=== PATIENT | female | born 1995 | race American Indian/Alaskan Native ===

== ENCOUNTER 2018-07-04 13:13 | Emergency (ER) | payer BC ==
[2018-07-04] MEDS ORDERED: NACL 0.9% 1000 ML 1,000 ML IV ONE (14:17)
[2018-07-04] MEDS ORDERED: TORADOL IV ONE (14:17)
[2018-07-04] MEDS ORDERED: REGLAN IV ONE (14:17)
[2018-07-04] MEDS ORDERED: BENADRYL IV ONE (14:17)
[2018-07-04] MEDS ORDERED: CATAPRES PO ONE ×2 (14:19→14:43)
--- NOTE | 2018-07-04 14:23 | Emergency Department Report ---
ED Headache HPI - General Chief Complaint: Headache Stated Complaint: HEADACHE Time Seen by Provider: 07/04/18 13:53 - History of Present Illness Initial Comments: This is a 22-year-old female nontoxic, well nourished in appearance, no acute signs of distress presents to the ED with c/o of intermittent headache x3 days. Patient describes headache as diffuse with level of 3 out of 10. Patient denies thunderclap headache. Patient denies any radiation of pain. Patient denies any head trauma. Patient denies any visual changes. Patient denies worse headache. Patient stated that darkness makes headache better and bright lights make the headache worse. Patient also stated that she has been taking OTC extra strength Tylenol which subsided her headaches. Patient denies any numbness, tingling, fever, chills, nausea, vomiting, chest pain, shortness of breath, stiff neck. Patient denies any radiation of pain. Patient denies any allergies. Patient stated PMH includes HTN. Timing/Duration: episodic Quality: mild, achy Recent Head Trauma: no recent headache/trauma Associated Symptoms: denies symptoms. denies: confusion, fatigue, facial pain, fever/chills, flushing, loss of consciousness, nausea/vomiting, nasal congestion, nasal drainage, numbness in legs/feet, rash, seizures, sinus infection, stiff neck, vision changes, weakness Allergies/Adverse Reactions: Allergies No Known Allergies Allergy (Unverified 07/04/18 13:27) Home Medications: Ambulatory Orders Butalb/Acetamin/Caff 50-325-40 [Fioricet] 1 tab PO Q6HR PRN #12 tab 07/04/18 amLODIPine [Norvasc] 5 mg PO DAILY #30 tab 07/04/18 ED Review of Systems ROS: Stated complaint: HEADACHE Other details as noted in HPI Constitutional: denies: chills, fever Eyes: denies: eye pain, eye discharge, vision change ENT: denies: ear pain, throat pain Respiratory: denies: cough, shortness of breath, wheezing Cardiovascular: denies: chest pain, palpitations Endocrine: no symptoms reported Gastrointestinal: denies: abdominal pain, nausea, diarrhea Genitourinary: denies: urgency, dysuria, discharge Musculoskeletal: denies: back pain, joint swelling, arthralgia Skin: denies: rash, lesions Neurological: headache. denies: weakness, paresthesias Psychiatric: denies: anxiety, depression Hematological/Lymphatic: denies: easy bleeding, easy bruising ED Past Medical Hx - Past Medical History Hx Hypertension: Yes (does not take med) - Surgical History Past Surgical History?: No - Social History Smoking Status: Never Smoker Substance Use Type: None - Medications Home Medications: Home Medications Medication Instructions Recorded Confirmed Last Taken Type Butalb/Acetamin/Caff 50-325-40 1 tab PO Q6HR PRN #12 tab 07/04/18 Unknown Rx [Fioricet] amLODIPine [Norvasc] 5 mg PO DAILY #30 tab 07/04/18 Unknown Rx ED Physical Exam - General Limitations: No Limitations General appearance: alert, in no apparent distress - Head Head exam: Present: atraumatic, normocephalic - Eye Eye exam: Present: normal appearance, PERRL, EOMI - Neck Neck exam: Present: normal inspection, full ROM. Absent: tenderness, meningismus, lymphadenopathy - Extremities Exam Extremities exam: Present: normal inspection, full ROM - Back Exam Back exam: Present: normal inspection, full ROM - Neurological Exam Neurological exam: Present: alert, oriented X3, normal gait - Expanded Neurological Exam Expanded Patient oriented to: Present: person, place, time Cranial nerves: EOM's Intact: Normal, Facial Sensation: Normal Cerebellar function: Finger to Nose: Normal Upper motor neuron: Pronator Drift: Normal, Sensory Extinction: Normal Sensory exam: Upper Extremity Light Touch: Normal, Upper Extremity Pin Prick: Normal, Upper Extremity Temperature: Normal, UE 2 Point Discrimination: Normal, Lower Extremity Light Touch: Normal, Lower Extremity Pin Prick: Normal, Lower Extremity Temperature: Normal, LE 2 Point Discrimination: Normal Motor strength exam: RUE: 5, LUE: 5, RLE: 5, LLE: 5 Best Eye Response (Scarlet): (4) open spontaneously Best Motor Response (Bowman): (6) obeys commands Best Verbal Response (Bowman): (5) oriented Bowman Total: 15 - Psychiatric Psychiatric exam: Present: normal affect, normal mood - Skin Skin exam: Present: warm, dry, intact, normal color. Absent: rash ED Course Vital Signs 07/04/18 13:25 Temperature 98.6 F Pulse Rate 92 H Respiratory 18 Rate Blood Pressure 167/108 O2 Sat by Pulse 100 Oximetry - Reevaluation(s) Reevaluation #1: 07/04/18 14:30 Patient is speaking in full sentences with no signs of distress noted. ED Medical Decision Making - Medical Decision Making This is a 22-year-old female that presents with headache and HTN. Patient is stable and was examined by me. Patient is neurologically stable. There is no stiff neck or neck pain. Vital signs are stable. Patient is afebrile. Patient received Benadryl, Reglan, Toradol, and 1 L of normal saline which the patient stated that headache has subsided and resolved. Patient also recevied Catapres in the ED. patient was instructed to keep a daily diary of blood pressure and presented to primary care doctor. Patient was instructed not to operate any machinery after discharged due to drowsiness of Benadryl. Patient stated that a family member will drive patient home. Patient is discharged with Fioricet and Norvasc. Patient was referred to Follow-up with a primary care/neurologist doctor in 3-5 days or if symptoms worsen and continue return to emergency room as soon as possible. At time of discharge, the patient does not seem toxic or ill in appearance. No acute signs of distress noted. Patient agrees to discharge treatment plan of care. No further questions noted by the patient. Critical care attestation.: If time is entered above; I have spent that time in minutes in the direct care of this critically ill patient, excluding procedure time. ED Disposition Clinical Impression: Headache Qualifiers: Headache type: unspecified Headache chronicity pattern: acute headache Intractability: not intractable Qualified Code(s): R51 - Headache Hypertension Qualifiers: Hypertension type: unspecified Qualified Code(s): I10 - Essential (primary) hypertension Disposition: DC-01 TO HOME OR SELFCARE Is pt being admited?: No Does the pt Need Aspirin: No Condition: Stable Instructions: Hypertension (ED), Low Sodium Diet (ED) Additional Instructions: Follow-up with a primary care doctor in 3-5 days or if symptoms worsen and continue return to emergency room as soon as possible. Keep a daily diary of your blood pressure and present it to primary care doctor. Prescriptions: amLODIPine [Norvasc] 5 mg PO DAILY #30 tab Butalb/Acetamin/Caff 50-325-40 [Fioricet] 1 tab PO Q6HR PRN #12 tab PRN Reason: Headache Referrals: PRIMARY CARE, [Primary Care Provider] - 3-5 Days KALI BLACKWOOD MD [Staff Physician] - 3-5 Days [facility] [Outside] - 3-5 Days [facility] [Outside] - 3-5 Days Forms: Work/School Release Form(ED)
[2018-07-04] MEDS ORDERED: CATAPRES ONE (14:34)
[2018-07-04 16:01] VITALS: BP 139/87
== END 2018-07-04 16:15 | disposition home or self-care (01) ==
LOC: ED 13:13
DX: R51 Headache (principal); I10 Essential (primary) hypertension
CPT/HCPCS: 96361; 96374; 96375; 99283; J1200; J1885; J2765; J7030

== ENCOUNTER 2018-09-29 23:19 | Emergency (ER) | payer SELFPAY ==
[2018-09-29] MEDS ORDERED: TYLENOL PO ONE (23:57)
[2018-09-30] MEDS ORDERED: TYLENOL ONE
[2018-09-30] MEDS ORDERED: TRIMOX PO ONE (00:07)
[2018-09-30] MEDS ORDERED: DECADRON IM ONE (00:07)
--- NOTE | 2018-09-30 00:12 | Emergency Department Report ---
Minor Respiratory - HPI Chief Complaint: Sore Throat Stated Complaint: SORE THROAT Time Seen by Provider: 09/30/18 00:07 Duration: 3 Days Pain Location: Throat Severity: mild Minor Respiratory: Yes Sore Throat, Yes Able to Tolerate Fluids, Yes Fever, No Rhinorrhea, No Ear Pain, No Cough, No Sick Contacts, No Hemoptysis, No Chest Pain, No Shortness of Breath Other History: SORE THROAT FOR 3 DAYS. FEVER. [employer] IN[employer]. [employer]. [employer]ING [employer]. PMH. HTN. RX. NONE ED Review of Systems ROS: Stated complaint: SORE THROAT Other details as noted in HPI Comment: All other systems reviewed and negative Constitutional: see HPI, fever. denies: chills Eyes: denies: eye pain ENT: as per HPI, throat pain Respiratory: denies: orthopnea Cardiovascular: denies: palpitations Endocrine: denies: flushing Gastrointestinal: denies: nausea Genitourinary: denies: dysuria Musculoskeletal: denies: back pain Skin: denies: lesions Neurological: denies: headache Psychiatric: denies: anxiety Hematological/Lymphatic: denies: easy bleeding ED Past Medical Hx - Past Medical History Previous Medical History?: Yes Hx Hypertension: Yes Additional medical history: Obesity - Surgical History Past Surgical History?: No - Family History Family history: no significant - Social History Smoking Status: Never Smoker Substance Use Type: None - Medications Home Medications: Home Medications Medication Instructions Recorded Confirmed Last Taken Type Amoxicillin 500 mg PO BID #20 capsule 09/30/18 Unknown Rx Minor Respiratory Exam - Exam General: Vital signs noted. No distress. Alert and acting appropriately. HEENT: Yes Pharyngeal Erythema, Yes Pharyngeal Exudates, Yes Moist Mucous Membranes, No Rhinorrhea, No Conjuctival Injection, No Frontal Tenderness, No Maxillary Tenderness Ear: Neither TM Bulge, Neither TM Erythema, Neither EAC Pain, Neither EAC Discharge Neck: No Adenopathy, No Supple Lungs: Yes Good Air Exchange, No Wheezes, No Ronchi, No Stridor, No Cough, No Labored Respirations, No Retractions, No Use of Accessory Muscles, No Other Abnormal Lung Sounds Heart: Yes Regular, No Murmur Abdomen: Yes Normal Bowel Sounds, No Tenderness, No Peritoneal Signs Skin: No Rash, No Edema Neurologic: Alert and oriented, no deficits. Musculoskeletal: Unremarkable. ED Course Vital Signs 09/29/18 23:33 Temperature 100.1 F H Pulse Rate 111 H Respiratory 18 Rate Blood Pressure 171/105 O2 Sat by Pulse 98 Oximetry ED Medical Decision Making - Medical Decision Making Vital Signs 09/29/18 23:33 Temperature 100.1 F H Pulse Rate 111 H Respiratory 18 Rate Blood Pressure 171/105 O2 Sat by Pulse 98 Oximetry MEDICATED IN ER HAS NOT TAKEN HER BP MEDS BECAUSE HER THROAT HURTS CLONIDINE PO IN ER DC HOME WITH DC PLAN OF CARE AND FOLLOW UP WITH PCP Critical care attestation.: If time is entered above; I have spent that time in minutes in the direct care of this critically ill patient, excluding procedure time. ED Disposition Clinical Impression: Exudative pharyngitis, HTN (hypertension) Disposition: DC-01 TO HOME OR SELFCARE Is pt being admited?: No Does the pt Need Aspirin: No Condition: Stable Instructions: Pharyngitis (ED), Hypertension (ED) Additional Instructions: HYDRATE WELL WITH WATER FOLLOW UP PCP IF PERSISTS ACTIVITY TOLERATED DIET TOLERATED MED ORDERED MOTRIN OR TYLENOL FOR PAIN OR FEVER Prescriptions: Amoxicillin 500 mg PO BID #20 capsule Referrals: [facility] [Outside] - 3-5 Days Time of Disposition: 00:12
[2018-09-30] MEDS ORDERED: CATAPRES PO ONE (00:13)
[2018-09-30 02:25] VITALS: BP 142/103
== END 2018-09-30 02:26 | disposition home or self-care (01) ==
LOC: ED 23:19
DX: J02.9 Acute pharyngitis, unspecified (principal); I10 Essential (primary) hypertension; E66.9 Obesity, unspecified
CPT/HCPCS: 87430; 96372; 99283; J1100

== ENCOUNTER 2019-02-09 22:58 | Emergency (ER) | payer SELFPAY ==
[2019-02-10] MEDS ORDERED: XYLOCAINE 1% MPF 5 mL INFILTRATI ONE (00:52)
[2019-02-10] MEDS ORDERED: NORCO 5/325 PO ONE (00:53)
[2019-02-10] MEDS ORDERED: BOOSTRIX IM ONE (00:53)
--- NOTE | 2019-02-10 01:40 | Emergency Department Report ---
- General Chief Complaint: Wound/Laceration Stated Complaint: GASH ON LEFT ARM, HIT BY METAL DOOR Time Seen by Provider: 02/10/19 00:51 Source: patient Mode of arrival: Ambulatory Limitations: No Limitations - History of Present Illness Initial Comments: Pt is a 23-year-old female who presents for left forearm laceration versus metabolic at work last tetanus is unknown and is 2 cm bleeding controlled by direct pressure applied at work there is no numbness tingling no no tendon or muscle damage range of motion remains intact Onset/Timin -: hour(s) Extremity Location: Left: Forearm Place: work Patient Tetanus UTD: No Context: accidental Associated Symptoms: pain - Related Data Previous Rx's Medication Instructions Recorded Last Taken Type Amoxicillin 500 mg PO BID #20 capsule 09/30/18 Unknown Rx cephALEXin [Keflex] 500 mg PO Q8HR 10 Days #30 cap 02/10/19 Unknown Rx traMADol [Ultram] 50 mg PO Q6HR PRN #12 tablet 02/10/19 Unknown Rx Allergies Allergy/AdvReac Type Severity Reaction Status Date / Time No Known Allergies Allergy Verified 07/04/18 14:32 ED Review of Systems ROS: Stated complaint: GASH ON LEFT ARM, HIT BY METAL DOOR Other details as noted in HPI Constitutional: denies: chills, fever Eyes: denies: eye pain, eye discharge, vision change ENT: denies: ear pain, throat pain Respiratory: denies: cough, shortness of breath, wheezing Cardiovascular: denies: chest pain, palpitations Endocrine: no symptoms reported Gastrointestinal: denies: abdominal pain, nausea, vomiting, diarrhea Genitourinary: denies: urgency, dysuria, discharge Musculoskeletal: denies: back pain, joint swelling, arthralgia Skin: other (laceration 2 cm left foream ). denies: rash, lesions Neurological: denies: headache, weakness, paresthesias Psychiatric: denies: anxiety, depression Hematological/Lymphatic: denies: easy bleeding, easy bruising ED Past Medical Hx - Past Medical History Previous Medical History?: Yes Hx Hypertension: Yes Additional medical history: Obesity - Surgical History Past Surgical History?: No - Social History Smoking Status: Never Smoker Substance Use Type: None - Medications Home Medications: Home Medications Medication Instructions Recorded Confirmed Last Taken Type Amoxicillin 500 mg PO BID #20 capsule 09/30/18 Unknown Rx cephALEXin [Keflex] 500 mg PO Q8HR 10 Days #30 cap 02/10/19 Unknown Rx traMADol [Ultram] 50 mg PO Q6HR PRN #12 tablet 02/10/19 Unknown Rx ED Physical Exam - General Limitations: No Limitations General appearance: alert, in no apparent distress - Head Head exam: Present: atraumatic, normocephalic - Eye Eye exam: Present: normal appearance, PERRL, EOMI Pupils: Present: normal accommodation - ENT ENT exam: Present: mucous membranes moist - Neck Neck exam: Present: normal inspection, tenderness, full ROM, lymphadenopathy - Respiratory Respiratory exam: Present: normal lung sounds bilaterally. Absent: wheezes, stridor, chest wall tenderness - Cardiovascular Cardiovascular Exam: Present: regular rate, normal rhythm, normal heart sounds. Absent: systolic murmur, diastolic murmur, rubs, gallop - GI/Abdominal GI/Abdominal exam: Present: soft, normal bowel sounds. Absent: distended, tenderness, bruit, hernia - Rectal Rectal exam: Present: deferred - Extremities Exam Extremities exam: Present: normal inspection, full ROM, tenderness (left forearm laceration), normal capillary refill. Absent: pedal edema, joint swelling - Expanded Upper Extremity Exam Left General: Present: laceration Forearm Wrist exam: Present: full ROM, tenderness, laceration. Absent: swelling, abrasion, ecchymosis, deformity, crepidus, dislocation, erythema, tenderness over anatomical snuff box, pain with axial thumb loading Neuro motor exam: Present: wrist extension intact, thumb opposition intact, thumb IP flexion intact, thumb adduction intact, fingers 2-5 abduction intact Neurosensory exam: Present: 2-point discrimination, radial nerve intact, ulnar nerve intact, median nerve intact Vascular: Present: normal capillary refill, radial pulse, brachial pulse, ulnar pulse. Absent: pulse deficit radial art, pulse deficit ulnar art, pulse deficit brachial art - Back Exam Back exam: Present: normal inspection, full ROM, muscle spasm. Absent: tender ness, CVA tenderness (R), CVA tenderness (L), paraspinal tenderness, vertebral tenderness, rash noted - Neurological Exam Neurological exam: Present: alert, oriented X3, CN II-XII intact, normal gait, reflexes normal. Absent: motor sensory deficit - Psychiatric Psychiatric exam: Present: normal affect, normal mood - Skin Skin exam: Present: warm, dry, intact, normal color. Absent: rash ED Course Vital Signs 02/09/19 02/09/19 02/10/19 23:03 23:15 01:14 Temperature 98.3 F Pulse Rate 98 H Respiratory 20 16 Rate Blood Pressure 191/105 Blood Pressure 177/102 [Left] O2 Sat by Pulse 99 Oximetry - Laceration /Wound Repair Left Posterior Arm Wound Location: upper extremity Wound Length (cm): 2 Wound's Depth, Shape: superficial Wound Explored: clean Irrigated w/ Saline (ccs): 20 Betadine Prep?: Yes Anesthesia: 1% Lidocaine Volume Anesthetic (ccs): 2 Wound Debrided: none required Wound Repaired With: sutures Suture Size/Type: 4:0, proline Number of Sutures: 7 (running ) Layer Closure?: No Sterile Dressing Applied?: Yes Progress: Left forearm laceration 2 cm posterior forearm wound clean and Betadine solution and anesthesia with 1% lidocaine plain 2 mL 20 mL sterile saline no foreign bodies noted warm male explored with blunt forceps were closed with 3. 0 Prolene 7 sutures running edges are well approximated wound was contrasted dressing applied there is no nerve muscle or tendon damage CMS is intact patient instructions. ED Medical Decision Making - Medical Decision Making pt for laceration repair see procedure note, all bleeding is controlled tetanus given, pt will follow up with pcp in 2 days for wound check and 7-10 days for suture removal pt verbalized agreement and understanding of same. pt with htn episode, no symptoms no cp no sob no dizziness lightheadedness no back no n/v Critical care attestation.: If time is entered above; I have spent that time in minutes in the direct care of this critically ill patient, excluding procedure time. ED Disposition Clinical Impression: Laceration of forearm, left Qualifiers: Encounter type: initial encounter Qualified Code(s): S51.812A - Laceration without foreign body of left forearm, initial encounter Disposition: - TO HOME OR SELFCARE Is pt being admited?: No Does the pt Need Aspirin: No Condition: Stable Instructions: Laceration (ED), Suture Care (ED) Prescriptions: cephALEXin [Keflex] 500 mg PO Q8HR 10 Days #30 cap traMADol [Ultram] 50 mg PO Q6HR PRN #12 tablet PRN Reason: Pain Referrals: ANNA REYNOLDS MD [Primary Care Provider] - 3-5 Days Forms: Work/School Release Form(ED) Time of Disposition: 01:50
[2019-02-10 05:22] VITALS: BP 155/91
== END 2019-02-10 02:15 | disposition home or self-care (01) ==
LOC: ED 22:58
DX: S51.812A Laceration without foreign body of left forearm, initial encounter (principal); X58.XXXA Exposure to other specified factors, initial encounter; Y93.89 Activity, other specified; Y92.89 Other specified places as the place of occurrence of the external cause; Y99.8 Other external cause status
CPT/HCPCS: 90471; 90715

== ENCOUNTER 2019-02-18 11:38 | Emergency (ER) | payer SELFPAY ==
[2019-02-18 12:00] VITALS: BP 186/105
--- NOTE | 2019-02-18 12:01 | Emergency Department Report ---
Suture/Staple Removal - HPI Chief Complaint: Medical Clearance Stated Complaint: SUTURE REMOVAL Time Seen by Provider: 02/18/19 11:57 When Sutures or Iraida Placed: 5-7 Days Ago Wound Location: left forearm ED Review of Systems ROS: Stated complaint: SUTURE REMOVAL Other details as noted in HPI Comment: All other systems reviewed and negative ED Past Medical Hx - Past Medical History Hx Hypertension: Yes Additional medical history: Obesity - Social History Smoking Status: Never Smoker Substance Use Type: None - Medications Home Medications: Home Medications Medication Instructions Recorded Confirmed Last Taken Type Amoxicillin 500 mg PO BID #20 capsule 09/30/18 Unknown Rx cephALEXin [Keflex] 500 mg PO Q8HR 10 Days #30 cap 02/10/19 Unknown Rx traMADol [Ultram] 50 mg PO Q6HR PRN #12 tablet 02/10/19 Unknown Rx Suture Removal Exam - Exam General: Vital signs noted. No distress. Alert and acting appropriately. Wound: No Pathologic Erythema, No Tenderness, No Drainage, No Pus, No Wound Dehiscence Other Systems: All other systems reviewed and are unremarkable. ED Recheck MDM - Differential Diagnosis Suture/Staple Removal Critical care attestation.: If time is entered above; I have spent that time in minutes in the direct care of this critically ill patient, excluding procedure time. ED Disposition Clinical Impression: Visit for suture removal Disposition: DC-01 TO HOME OR SELFCARE Is pt being admited?: No Does the pt Need Aspirin: No Condition: Stable Instructions: Suture Removal (ED)
== END 2019-02-18 12:10 | disposition home or self-care (01) ==
LOC: ED 11:38
DX: Z48.02 Encounter for removal of sutures (principal); I10 Essential (primary) hypertension; E66.9 Obesity, unspecified; Z79.899 Other long term (current) drug therapy

== ENCOUNTER 2019-09-29 22:01 | Emergency (ER) | payer SELFPAY ==
--- NOTE | 2019-09-29 23:16 | Emergency Department Report ---
Abscess Boil HPI - HPI Chief Complaint: Skin/Abscess/Foreign Body Stated Complaint: KNOT IN CHEST CAUSING CHEST PAIN X3 DAYS Time Seen by Provider: 09/29/19 23:08 Location: Chest Severity: Moderate History: Yes Pain (Mid chest), No Fever (6/10 with touch and movement), No Purulent Drainage, No Numbness, No Foreign Body, No Previous History, No Insect Bite HPI: Patient here report that she has not in her mid chest area since last . She reports that it is red and swollen and painful to touch and when she moves her arms. Tetanus vaccine is less than 2 years. Pain is sharp and worse with movement and touch. No medication taken for pain. Pain is intermitt ent. Denies any cough, shortness of breath, sore throat, nausea, vomiting, diarrhea or fevers or chills. Home Medications: Previous Rx's Medication Instructions Recorded Last Taken Type Amoxicillin 500 mg PO BID #20 capsule 09/30/18 Unknown Rx cephALEXin [Keflex] 500 mg PO Q8HR 10 Days #30 cap 02/10/19 Unknown Rx traMADoL [Ultram] 50 mg PO Q6HR PRN #12 tablet 02/10/19 Unknown Rx Clindamycin [Clindamycin CAP] 300 mg PO Q8H 10 Days #30 cap 09/29/19 Unknown Rx Ibuprofen [Motrin] 800 mg PO Q8HR PRN #12 tablet 09/29/19 Unknown Rx Allergies/Adverse Reactions: Allergies Allergy/AdvReac Type Severity Reaction Status Date / Time No Known Allergies Allergy Verified 07/04/18 14:32 ED Review of Systems ROS: Stated complaint: KNOT IN CHEST CAUSING CHEST PAIN X3 DAYS Other details as noted in HPI Constitutional: denies: chills, fever ENT: denies: throat pain, congestion Respiratory: denies: cough, shortness of breath, wheezing Cardiovascular: denies: chest pain, palpitations, edema, syncope Gastrointestinal: denies: nausea, vomiting Musculoskeletal: denies: back pain, joint swelling, arthralgia, myalgia Skin: other (Not on chest) Neurological: denies: headache ED Past Medical Hx - Past Medical History Previous Medical History?: Yes Hx Hypertension: Yes Additional medical history: Obesity - Surgical History Past Surgical History?: No - Family History Family history: no significant - Social History Smoking Status: Never Smoker Substance Use Type: None - Medications Home Medications: Home Medications Medication Instructions Recorded Confirmed Last Taken Type Amoxicillin 500 mg PO BID #20 capsule 09/30/18 Unknown Rx cephALEXin [Keflex] 500 mg PO Q8HR 10 Days #30 cap 02/10/19 Unknown Rx traMADoL [Ultram] 50 mg PO Q6HR PRN #12 tablet 02/10/19 Unknown Rx Clindamycin [Clindamycin CAP] 300 mg PO Q8H 10 Days #30 cap 09/29/19 Unknown Rx Ibuprofen [Motrin] 800 mg PO Q8HR PRN #12 tablet 09/29/19 Unknown Rx ED Abscess Boil Physical Exam - Exam General: Vital signs noted. No distress. Alert and acting appropriately. This is a 24-year-old female well-nourished well-developed in no acute distress. Front/Back of Body, Lg (Color): 1 - Red, indurated, 1 x 1 cm round area to midsternal area midline to nipples on both side. Tender to palpate and no drainage. Please see procedure note for detail incision and drainage Size: 1 cm Exam: Yes Tenderness, Yes Fluctuance (Minimal), Yes Surrounding Cellulites/Eryth daniel (Minimal), Yes Normal Neurologic Exam (Alert and oriented x3, normal gait. GCS 15), Yes Normal Circulation (No cce. + 2 pulses in all extremities, no neurovascular compromise), No Lymphangitis, No Crepitation, No Heart Murmur (S1- S2, regular rate and rhythm) Exam: Lungs: Clear to auscultate bilaterally, no rhonchi wheezes or rails I & D Note - I & D Note I & D Note: Incision and drainage procedure. I aspirated 3 cc of pus using 18- gauge needle at abscess size to mid chest. Prior to aspiration. area cleansed and numbed with lidocaine 1%, 1 cc. Patient tolerated procedure well. Area cleaned after procedure with iodine and normal saline and sterile dry dressing placed aside. ED Course Vital Signs 09/29/19 09/29/19 09/29/19 23:48 23:53 23:54 Temperature 100.3 F H Pulse Rate 103 H 94 H Respiratory 18 Rate Blood Pressure 153/94 [Left] O2 Sat by Pulse 106 H 100 Oximetry - Reevaluation(s) Reevaluation #1: 09/29/19 23:40 Patient stable throughout ED course. Please see procedure note for details on drainage of abscess Reevaluation #2: 09/29/19 23:42 Motrin 800 mg and clindamycin 600 mg p.o. in emergency room Critical care attestation.: If time is entered above; I have spent that time in minutes in the direct care of this critically ill patient, excluding procedure time. ED Medical Decision Making - Medical Decision Making Patient with small abscess to midsternal area. Please see procedure note for details on drainage. Patient tolerated procedure well. Patient given Motrin 800 mg p.o. and clindamycin 600 mg p.o. in emergency room prior to discharge. She is stable and says she felt much better after aspiration. Vital signs stable she is afebrile and she is to follow-up with her primary care physician in 2 to 3 days. Discharged home with prescription for Motrin and clindamycin. ED Disposition Clinical Impression: Abscess or cellulitis of chest wall Disposition: DC-01 TO HOME OR SELFCARE Is pt being admited?: No Does the pt Need Aspirin: No Condition: Stable Instructions: Cellulitis (ED), Abscess Incision and Drainage (ED) Additional Instructions: Please keep affected area clean and dry. Apply warm compresses at least 3 times a day to affected site to facilitate softening and drainage. If condition worsens, return to the emergency room Follow-up with your primary care physician in 4 days. Take medication as prescribed Prescriptions: Clindamycin [Clindamycin CAP] 300 mg PO Q8H 10 Days #30 cap Ibuprofen [Motrin] 800 mg PO Q8HR PRN #12 tablet PRN Reason: pain Referrals: ROSEMARY SHELTON MD [Primary Care Provider] - 10/04/19 Forms: Work/School Release Form(ED)
[2019-09-29] MEDS ORDERED: CLINDAMYCIN 300 MG CAP PO ONE (23:41)
[2019-09-29] MEDS ORDERED: IBUPROFEN 800 MG TAB PO ONE (23:41)
[2019-09-29 23:49] VITALS: BP 153/94
== END 2019-09-30 00:31 | disposition home or self-care (01) ==
LOC: ED 22:01
DX: L02.213 Cutaneous abscess of chest wall (principal); I10 Essential (primary) hypertension; Z79.899 Other long term (current) drug therapy

== ENCOUNTER 2021-01-22 18:21 | Emergency (ER) | payer OTHER ==
[2021-01-22 19:25] VITALS: BP 182/118
[2021-01-23] MEDS ORDERED: oxyCODONE /ACETAMINOPHEN 5-325MG TAB PO ONE (00:37)
--- NOTE | 2021-01-23 00:38 | Emergency Department Report ---
ED Fall HPI - General Chief Complaint: Multiple Trauma Stated Complaint: FALL Time Seen by Provider: 01/23/21 00:30 Source: patient Mode of arrival: Ambulatory - History of Present Illness Initial Comments: Patient is a 25-year-old female that presents emergency room with complaints of fall. Patient states she was in her attic change in her air conditioning filters and she fell through the ceiling. Patient states that she landed on her right ankle and injured her right shoulder and twisted her lower back and hurt her left hand. Patient states her pain is 10/10. States her pain is better with rest. Patient states her pain is worse with palpation and movement.. Patient denies hitting her head. Patient denies loss of consciousness. Patient states she is just in pain. Patient denies chest pain. Patient denies shortness of breath or patient denies neck pain. Patient denies blurry vision. Patient denies fever or chills. Patient planes of right ankle pain, right shoulder pain, lower back pain, left hand pain. Patient denies recent travel. Patient denies recent international travel. Patient denies exposure to the novel coronavirus. Patient denies sick contacts. Patient denies fever and chills. Patient denies cough. Patient denies diarrhea. Patient denies coming in contact with anybody with symptoms of the novel coronavirus. Complaint: fall -: Sudden, hour(s) Fall From: from height (distance) When Fall Occurred: 1 hour [employer] Fall Witnessed: yes, by family Loss of Consciousness: none Prolonged Down Time?: no Symptoms Prior to Fall: none Location: back Location - Extremities: Left: Hand, Right: Shoulder, Foot Severity: severe Severity scale (0 -10): 10 Quality: sharp Context: tripped/slipped Associated Symptoms: denies: headache, neck pain, numbness, weakness, chest paint, shortness of breath, abdominal pain, hematuria, unable to walk, lightheaded, vertigo, confusion - Related Data Previous Rx's Medication Instructions Recorded Last Taken Type Amoxicillin 500 mg PO BID #20 capsule 09/30/18 Unknown Rx cephALEXin [Keflex] 500 mg PO Q8HR 10 Days #30 cap 02/10/19 Unknown Rx traMADoL [Ultram] 50 mg PO Q6HR PRN #12 tablet 02/10/19 Unknown Rx Clindamycin [Clindamycin CAP] 300 mg PO Q8H 10 Days #30 cap 03/29/20 Unknown Rx Ibuprofen [Motrin 800 MG tab] 800 mg PO Q8HR PRN #12 tablet 01/23/21 Unknown Rx Metaxalone [Skelaxin] 800 mg PO TID PRN #15 tablet 01/23/21 Unknown Rx oxyCODONE /ACETAMINOPHEN [Percocet 1 tab PO Q4HR PRN #12 tab 01/23/21 Unknown Rx 5/325] Allergies Allergy/AdvReac Type Severity Reaction Status Date / Time No Known Allergies Allergy Verified 07/04/18 14:32 ED Review of Systems ROS: Stated complaint: FALL Other details as noted in HPI Constitutional: denies: chills, fever Eyes: denies: eye pain, eye discharge, vision change ENT: denies: ear pain, throat pain Respiratory: denies: cough, shortness of breath, wheezing Cardiovascular: denies: chest pain, palpitations Endocrine: no symptoms reported Gastrointestinal: denies: abdominal pain, nausea, diarrhea Genitourinary: denies: urgency, dysuria, discharge Musculoskeletal: as per HPI, back pain. denies: joint swelling, arthralgia Skin: denies: rash, lesions Neurological: denies: headache, weakness, paresthesias Psychiatric: denies: anxiety, depression Hematological/Lymphatic: denies: easy bleeding, easy bruising ED Past Medical Hx - Past Medical History Previous Medical History?: Yes Hx Hypertension: Yes Additional medical history: Obesity - Surgical History Past Surgical History?: No - Family History Family history: no significant - Social History Smoking Status: Never Smoker Substance Use Type: None - Medications Home Medications: Home Medications Medication Instructions Recorded Confirmed Last Taken Type Amoxicillin 500 mg PO BID #20 capsule 09/30/18 Unknown Rx cephALEXin [Keflex] 500 mg PO Q8HR 10 Days #30 cap 02/10/19 Unknown Rx traMADoL [Ultram] 50 mg PO Q6HR PRN #12 tablet 02/10/19 Unknown Rx Clindamycin [Clindamycin CAP] 300 mg PO Q8H 10 Days #30 cap 09/29/19 Unknown Rx Ibuprofen [Motrin 800 MG tab] 800 mg PO Q8HR PRN #12 tablet 01/23/21 Unknown Rx Metaxalone [Skelaxin] 800 mg PO TID PRN #15 tablet 01/23/21 Unknown Rx oxyCODONE /ACETAMINOPHEN [Percocet 1 tab PO Q4HR PRN #12 tab 01/23/21 Unknown Rx 5/325] ED Physical Exam - General Limitations: No Limitations General appearance: alert, in no apparent distress - Head Head exam: Present: atraumatic, normocephalic - Eye Eye exam: Present: normal appearance - ENT ENT exam: Present: mucous membranes moist - Neck Neck exam: Present: normal inspection - Respiratory Respiratory exam: Present: normal lung sounds bilaterally. Absent: respiratory distress, wheezes, rales - Cardiovascular Cardiovascular Exam: Present: regular rate, normal rhythm. Absent: systolic murmur, diastolic murmur, rubs, gallop - GI/Abdominal GI/Abdominal exam: Present: soft, normal bowel sounds. Absent: distended, tenderness, guarding - Extremities Exam Extremities exam: Present: normal inspection, tenderness (Right foot, left third digit, right shoulder) - Back Exam Back exam: Present: normal inspection, tenderness, paraspinal tenderness - Neurological Exam Neurological exam: Present: alert, oriented X3 - Psychiatric Psychiatric exam: Present: normal affect, normal mood - Skin Skin exam: Present: warm, dry, intact, normal color. Absent: rash ED Course Vital Signs 01/22/21 19:23 Temperature 99.4 F Pulse Rate 120 H Respiratory 18 Rate Blood Pressure 182/118 O2 Sat by Pulse 100 Oximetry - Reevaluation(s) Reevaluation #1: Patient states her pain is better. Patient was given 5 mg of Percocet. I discussed all results and clinical findings with patient. I discussed plan of care with patient. Patient agrees with plan of care. Patient is stable for discharge. Patient will be discharged home. Patient given discharge instructions. Patient voiced understanding of discharge instructions. 01/23/21 01:30 ED Medical Decision Making - Radiology Data Radiology results: report reviewed, image reviewed interpreted by me: Hand x-ray, lumbar x-ray, right shoulder x-ray, right ankle x-ray: No fracture, soft tissue normal, no foreign body. LEFT HAND 3 VIEWS INDICATION / CLINICAL INFORMATION: Left ring finger pain COMPARISON: None available. FINDINGS: BONES and JOINT(S): No acute fracture or subluxation. No significant arthritis. SOFT TISSUES: No significant abnormality. ADDITIONAL FINDINGS: None. IMPRESSION: 1. No acute findings. RIGHT ANKLE 3 VIEWS INDICATION / CLINICAL INFORMATION: right ankle pain COMPARISON: None available. FINDINGS: BONES and JOINT(S): No acute fracture or subluxation. No significant arthritis. SOFT TISSUES: No significant abnormality. ADDITIONAL FINDINGS: None. IMPRESSION: 1. No acute findings. RIGHT SHOULDER 3 VIEWS INDICATION / CLINICAL INFORMATION: right shoulder pain COMPARISON: None available. FINDINGS: BONES and JOINT(S): No acute fracture or subluxation. No significant arthritis. SOFT TISSUES: No significant abnormality. ADDITIONAL FINDINGS: None. IMPRESSION: 1. No acute findings. LUMBAR SPINE 3 VIEWS INDICATION: Lower back pain. COMPARISON: No relevant prior imaging study available. FINDINGS: VERTEBRAE: No acute fracture. Normal alignment. DISC SPACES: No significant abnormality. FACET JOINTS: No significant abnormality. SOFT TISSUES: No significant abnormality. ADDITIONAL FINDINGS: No additional significant findings. IMPRESSION: 1. No acute findings. - Medical Decision Making Patient is a 25-year-old female with a fell through her ceiling at home while changing her filters and injured her left hand, right shoulder, lower back and right ankle. Patient had x-rays done of each individual site. Patient x-rays were negative for acute finding. Personally reviewed all x-rays. Patient given a 5 mg Percocet and responded well and the pain decreased. Patient is stable for discharge. Patient not require inpatient services. Patient not require further emergency medical services. patient given discharge instructions. Patient instructed to follow-up with orthopedist. - Differential Diagnosis Sprain, strain, fracture, fall. shoulder, hand, ankle, lower back pain Critical care attestation.: If time is entered above; I have spent that time in minutes in the direct care of this critically ill patient, excluding procedure time. ED Disposition Clinical Impression: Left hand pain, Strain of tendon of lower back Fall Qualifiers: Encounter type: initial encounter Qualified Code(s): W19.XXXA - Unspecified fal l, initial encounter Ankle pain Qualifiers: Chronicity: acute Laterality: right Qualified Code(s): M25.571 - Pain in right ankle and joints of right foot Right shoulder pain Qualifiers: Chronicity: acute Qualified Code(s): M25.511 - Pain in right shoulder Lower back pain Qualifiers: Chronicity: acute Back pain laterality: bilateral Sciatica presence: without sciatica Qualified Code(s): M54.5 - Low back pain Contusion of right ankle Qualifiers: Encounter type: initial encounter Qualified Code(s): S90.01XA - Contusion of right ankle, initial encounter Sprain of right shoulder Qualifiers: Encounter type: initial encounter Shoulder sprain type: unspecified sprain Qualified Code(s): S43.401A - Unspecified sprain of right shoulder joint, initial encounter Contusion of left hand Qualifiers: Encounter type: initial encounter Qualified Code(s): S60.222A - Contusion of left hand, initial encounter Disposition: DC- TO HOME OR SELFCARE Is pt being admited?: No Does the pt Need Aspirin: No Condition: Stable Instructions: Muscle Strain, [id number], Shoulder Pain, Acute Back Pain, Adult, Hand Pain, Back Exercises, [id number], Hand Contusion, [id number] Additional Instructions: Patient to follow-up with primary care in 2 to 3 days. Patient to follow-up with orthopedist in 2 to 3 days. Patient to rest. Patient to increase water. Patient to avoid strenuous exercise or heavy lifting until cleared by orthopedist and primary care. Patient to avoid work until cleared by orthopedist. Patient to take Tylenol or ibuprofen as needed for pain. Patient to take meds as directed. Patient to return to the ER if condition worsens, changes or new symptoms arise. Prescriptions: Ibuprofen [Motrin 800 MG tab] 800 mg PO Q8HR PRN #12 tablet PRN Reason: pain oxyCODONE /ACETAMINOPHEN [Percocet 5/325] 1 tab PO Q4HR PRN #12 tab PRN Reason: Pain , Severe (7-10) Metaxalone [Skelaxin] 800 mg PO TID PRN #15 tablet PRN Reason: Muscle Spasm Referrals: MARCOS [facility]INSELOISE[place] MD EMILY [Primary Care Provider] - 2-3 Days CASE PRADO MD [Staff Physician] - 2-3 Days Time of Disposition: 01:48
--- NOTE | 2021-01-23 01:21 | XRay Report ---
LUMBAR SPINE 3 VIEWS INDICATION: Lower back pain. COMPARISON: No relevant prior imaging study available. FINDINGS: VERTEBRAE: No acute fracture. Normal alignment. DISC SPACES: No significant abnormality. FACET JOINTS: No significant abnormality. SOFT TISSUES: No significant abnormality. ADDITIONAL FINDINGS: No additional significant findings. IMPRESSION: 1. No acute findings. Signer Name: Arnel Souza MD Signed: 01/23/2021 1:17 AM Workstation Name: [id number]
--- NOTE | 2021-01-23 01:22 | XRay Report ---
RIGHT ANKLE 3 VIEWS INDICATION / CLINICAL INFORMATION: right ankle pain COMPARISON: None available. FINDINGS: BONES and JOINT(S): No acute fracture or subluxation. No significant arthritis. SOFT TISSUES: No significant abnormality. ADDITIONAL FINDINGS: None. IMPRESSION: 1. No acute findings. Signer Name: Arnel Souza MD Signed: 01/23/2021 1:17 AM Workstation Name: [id number]
--- NOTE | 2021-01-23 01:22 | XRay Report ---
RIGHT SHOULDER 3 VIEWS INDICATION / CLINICAL INFORMATION: right shoulder pain COMPARISON: None available. FINDINGS: BONES and JOINT(S): No acute fracture or subluxation. No significant arthritis. SOFT TISSUES: No significant abnormality. ADDITIONAL FINDINGS: None. IMPRESSION: 1. No acute findings. Signer Name: Arnel Souza MD Signed: 01/23/2021 1:18 AM Workstation Name: [id number]
--- NOTE | 2021-01-23 01:23 | XRay Report ---
LEFT HAND 3 VIEWS INDICATION / CLINICAL INFORMATION: Left ring finger pain COMPARISON: None available. FINDINGS: BONES and JOINT(S): No acute fracture or subluxation. No significant arthritis. SOFT TISSUES: No significant abnormality. ADDITIONAL FINDINGS: None. IMPRESSION: 1. No acute findings. Signer Name: Arnel Souza MD Signed: 01/23/2021 1:19 AM Workstation Name: [id number]
== END 2021-01-23 02:00 | disposition home or self-care (01) ==
LOC: ED 18:21
DX: S39.012A Strain of muscle, fascia and tendon of lower back, initial encounter (principal); S43.401A Unspecified sprain of right shoulder joint, initial encounter; S60.222A Contusion of left hand, initial encounter; S90.01XA Contusion of right ankle, initial encounter; M79.642 Pain in left hand; M25.511 Pain in right shoulder; M25.571 Pain in right ankle and joints of right foot; I10 Essential (primary) hypertension; E66.9 Obesity, unspecified; Z68.37 Body mass index [BMI] 37.0-37.9, adult; Z79.899 Other long term (current) drug therapy; W18.30XA Fall on same level, unspecified, initial encounter; Y93.89 Activity, other specified; Y92.89 Other specified places as the place of occurrence of the external cause; Y99.8 Other external cause status
CPT/HCPCS: 72100